=== PATIENT | male | born 1980 | race Caucasian/White ===

== ENCOUNTER 2024-12-19 17:33 | Emergency (ER) | payer MEDICAID ==
[~2024-12-19] VITALS: Ht 162.6 cm; Wt 80.0 kg
[2024-12-19 17:59] VITALS: O2SAT 100
[2024-12-19 18:51] LABS: BASOPHILS % 0.3 % (0.0-2.0); EOSINOPHILS % 0.9 % (0.0-5.0); HEMATOCRIT. 41.4 % (42.0-52.0); HEMOGLOBIN. 13.8 g/dL (14.0-18.0); LYMPHOCYTES % 13.8 % (20.0-50.0); MEAN CORPUSCULAR HGB CONC 33.4 g/dL (31.0-37.0); MEAN CORPUSCULAR VOLUME 89.8 fL (80.0-94.0); MEAN PLATELET VOLUME 8.5 fl (7.4-10.4); MONOCYTES % 9.5 % (2.0-8.0); NEUTROPHILS % 75.5 % (40.0-76.0); PLATELET 287 x1000/uL (130-400); RED BLOOD CELL COUNT 4.61 mill/uL (4.7-6.1); RED CELL DISTRIBUTION WIDTH 13.8 % (11.6-14.6); WHITE BLOOD COUNT 12.6 x1000/uL (4.5-11.0)
[2024-12-19 19:07] LABS: CHLORIDE 99 mEq/L (98-107); POTASSIUM 3.5 mEq/L (3.5-5.1); SODIUM 139 mEq/L (136-145)
[2024-12-19 19:08] LABS: CARBON DIOXIDE 32 mEq/L (21-32)
[2024-12-19 19:09] LABS: CALCIUM 9.5 mg/dL (8.7-10.4)
[2024-12-19 19:13] LABS: CREATININE 0.9 mg/dL (0.6-1.3); GLUCOSE 99 mg/dL (70-105)
[2024-12-19 19:14] LABS: UREA NITROGEN BLOOD 12 mg/dL (9-23)
[2024-12-19] MEDS: DICYCLOMINE HCL 10MG CAPSULE PO ONE (20:00)
[2024-12-19] MEDS: MAGNESIUM/ALUMINUM HYDROXIDE/SIMETHICONE 30ML UDC PO ONE (20:00)
[2024-12-19 21:44] LABS: CLARITY URINE CLEAR (CLEAR); COLOR URINE YELLOW (YELLOW); GLUCOSE URINE NEGATIVE (NEGATIVE); KETONES URINE NEGATIVE (NEGATIVE); LEUKOCYTE ESTERASE URINE NEGATIVE (NEGATIVE); NITRITE URINE NEGATIVE (NEGATIVE); OCCULT BLOOD URINE NEGATIVE (NEGATIVE); PROTEIN URINE NEGATIVE (NEGATIVE); SPECIFIC GRAVITY URINE 1.009 (1.005-1.030); UROBILINOGEN URINE 0.2 E.U./dL (0.2-1.0)
[2024-12-19] MEDS ORDERED: OMEP40CA20 MT (21:46)
[2024-12-19 22:02] VITALS: BP 131/89; PULSE 65; RESP 17; TEMP 36.8; O2SAT 100
== END 2024-12-19 22:21 | disposition home or self-care (01) ==
LOC: ER 17:33
DX: K57.32 Diverticulitis of large intestine without perforation or abscess without bleeding (principal); Z79.899 Other long term (current) drug therapy; Z88.0 Allergy status to penicillin
CPT/HCPCS: 36415; 74018; 74176; 80048; 81003; 85025; 99284

== ENCOUNTER 2025-05-08 11:57 | Inpatient (IN) | payer MEDICAID ==
[~2025-05-08] VITALS: Ht 167.6 cm; Wt 81.8 kg
[~2025-05-08 11:57] MED LIST: OMEP40CA20 MT
[2025-05-08 12:20] VITALS: O2SAT 99
[2025-05-08 13:35] LABS: HEMATOCRIT. 46.2 % (42.0-52.0); HEMOGLOBIN. 15.7 g/dL (14.0-18.0); MEAN PLATELET VOLUME 8.5 fl (7.4-10.4); PLATELET 302 x1000/uL (130-400); RED BLOOD CELL COUNT 5.13 mill/uL (4.7-6.1); RED CELL DISTRIBUTION WIDTH 14.1 % (11.6-14.6)
[2025-05-08 13:50] LABS: CREATININE 1.1 mg/dL (0.6-1.3)
[2025-05-08] MEDS: MAGNESIUM/ALUMINUM HYDROXIDE/SIMETHICONE 30ML UDC PO ONE (13:50)
[2025-05-08] MEDS: ONDANSETRON 4MG ODT PO ONE (13:50)
[2025-05-08] MEDS: FAMOTIDINE 20MG TABLET PO SCH (13:50)
[2025-05-08 13:51] LABS: TROPONIN I HIGH SENSITIVITY 4 ng/L (3.0-53); UREA NITROGEN BLOOD 9 mg/dL (9-23)
[2025-05-08 13:52] LABS: ASPARTATE AMINOTRANSFERASE 388 IU/L (<34); BILIRUBIN DIRECT 7.7 mg/dL (<=3.0)
[2025-05-08 13:53] LABS: BILIRUBIN TOTAL 10.9 mg/dL (0.1-1.0); PROTEIN TOTAL 9.0 g/dL (6.0-8.3)
[2025-05-08 14:17] LABS: CLARITY URINE CLEAR (CLEAR); COLOR URINE ORANGE (YELLOW); GLUCOSE URINE NEGATIVE (NEGATIVE); KETONES URINE NEGATIVE (NEGATIVE); LEUKOCYTE ESTERASE URINE 2+ (NEGATIVE); NITRITE URINE POSITIVE (NEGATIVE); OCCULT BLOOD URINE NEGATIVE (NEGATIVE); PH URINE 5.5 (4.5-8.0); PROTEIN URINE 2+ (NEGATIVE); SPECIFIC GRAVITY URINE 1.032 (1.005-1.030); UROBILINOGEN URINE 0.2 E.U./dL (0.2-1.0)
[2025-05-08 14:43] LABS: MUCUS URINE 1+ /lpf (NONE/TRACE)
[2025-05-08 14:44] LABS: BACTERIA URINE 1+
[2025-05-08 14:45] LABS: RBC URINE 0-2 /hpf (0-2); SQUAMOUS EPITHELIAL CELL URINE FEW /lpf (RARE/1+); WBC URINE 0-2 /hpf (0-2)
[2025-05-08] MEDS: SODIUM CHLORIDE 0.9% 1,000 ML IV ONE (14:51)
[2025-05-08] MEDS: SODIUM CHLORIDE 0.9% (SEPSIS BOLUS) IV ONE (14:54)
[2025-05-08 15:07] LABS: LYMPHOCYTES % MANUAL 2.0 % (20.0-50.0); MONOCYTES % MANUAL 6.0 % (2.0-8.0); NEUTROPHILS % MANUAL 92.0 % (45.0-75.0); PLATELET ESTIMATE NORMAL
[2025-05-08] MEDS: GENTAMICIN 120MG PREMIX 100 ML IV SCH (15:12)
[2025-05-08 16:20] VITALS: BP 147/106; PULSE 71; RESP 21; TEMP 36.5292
[2025-05-08] MEDS ORDERED: ONDANSETRON HCL 4MG/2ML INJ IV PRN (17:00)
[2025-05-08] MEDS: SODIUM CHLORIDE 0.9% 1,000 ML IV SCH (17:06)
[2025-05-08] MEDS: MORPHINE SULFATE 4 MG/ML INJ (FOR IV/IM USE) IV PRN (17:06)
[2025-05-08] MEDS ORDERED: NALOXONE HCL 0.4MG/ML VIAL IV PRN (17:15)
[2025-05-08 17:18] VITALS: BP 134/93; PULSE 81; RESP 18; O2SAT 98
[2025-05-08] MEDS: CEFTRIAXONE 1GM/50ML 50 ML IV ONE (18:53)
[2025-05-08] MEDS ORDERED: HYDRALAZINE 20MG/ML VIAL IV PRN (19:15)
[2025-05-08 20:00] VITALS: BP 133/97; PULSE 70; RESP 16; TEMP 37.3; O2SAT 99
[2025-05-08] MEDS ORDERED: CLONIDINE HCL 0.1MG/24HR PATCH TD SCH (21:00)
[2025-05-08] MEDS ORDERED: ACETAMINOPHEN 325MG TABLET PO PRN (22:30)
[2025-05-08] MEDS ORDERED: DIPHENHYDRAMINE 50MG/ML VIAL IV PRN (22:30)
[2025-05-09] VITALS (8 sets, daily range): BP systolic 101–139; BP diastolic 70–98; PULSE 64–80; RESP 13–18; TEMP 37–37.6; O2SAT 96–98
[2025-05-09 05:26] LABS: UREA NITROGEN BLOOD 9 mg/dL (9-23)
[2025-05-09 05:27] LABS: CREATININE 0.9 mg/dL (0.6-1.3)
[2025-05-09 05:29] LABS: ASPARTATE AMINOTRANSFERASE 185 IU/L (<34)
[2025-05-09 05:30] LABS: BILIRUBIN DIRECT 6.3 mg/dL (<=3.0); PHOSPHORUS 2.5 mg/dL (2.5-4.9); PROTEIN TOTAL 6.9 g/dL (6.0-8.3)
[2025-05-09 05:34] LABS: BILIRUBIN TOTAL 8.5 mg/dL (0.1-1.0)
[2025-05-09 06:29] LABS: BASOPHILS % 0.1 % (0.0-2.0); EOSINOPHILS % 0.4 % (0.0-5.0); HEMATOCRIT. 40.3 % (42.0-52.0); HEMOGLOBIN. 13.5 g/dL (14.0-18.0); LYMPHOCYTES % 9.3 % (20.0-50.0); MEAN PLATELET VOLUME 9.1 fl (7.4-10.4); MONOCYTES % 8.2 % (2.0-8.0); NEUTROPHILS % 82.0 % (40.0-76.0); PLATELET 234 x1000/uL (130-400); RED BLOOD CELL COUNT 4.42 mill/uL (4.7-6.1); RED CELL DISTRIBUTION WIDTH 14.5 % (11.6-14.6)
[2025-05-09] MEDS: PANTOPRAZOLE SODIUM 40 MG/VIAL IV SCH (08:33)
[2025-05-09 09:34] LABS: HEPATITIS A AB IGM NEGATIVE (Negative)
[2025-05-09 09:35] LABS: HEPATITIS B CORE AB IGM NEGATIVE (Negative); HEPATITIS C AB NON REACTIVE (Neg) (Negative)
[2025-05-09] MEDS: ONDANSETRON HCL 4MG/2ML INJ IV PRN (13:30)
[2025-05-09] MEDS: LACTATED RINGERS 1,000 ML IV SCH (21:22)
[2025-05-10] VITALS: BP 126/84; PULSE 77; RESP 18; TEMP 36.9; O2SAT 97
[2025-05-10 04:00] VITALS: BP 110/72; PULSE 72; RESP 14; TEMP 36.8; O2SAT 96
[2025-05-10 06:58] LABS: BASOPHILS % 0.3 % (0.0-2.0); EOSINOPHILS % 3.2 % (0.0-5.0); HEMATOCRIT. 37.1 % (42.0-52.0); HEMOGLOBIN. 12.7 g/dL (14.0-18.0); LYMPHOCYTES % 10.7 % (20.0-50.0); MEAN PLATELET VOLUME 9.2 fl (7.4-10.4); MONOCYTES % 9.5 % (2.0-8.0); NEUTROPHILS % 76.3 % (40.0-76.0); PLATELET 212 x1000/uL (130-400); RED BLOOD CELL COUNT 4.11 mill/uL (4.7-6.1); RED CELL DISTRIBUTION WIDTH 14.5 % (11.6-14.6)
[2025-05-10 07:10] LABS: BILIRUBIN TOTAL 5.4 mg/dL (0.1-1.0); CREATININE 0.8 mg/dL (0.6-1.3); PROTEIN TOTAL 6.6 g/dL (6.0-8.3); TRIGLYCERIDE 158 mg/dL (0-150); UREA NITROGEN BLOOD 5 mg/dL (9-23)
[2025-05-10 07:12] LABS: ASPARTATE AMINOTRANSFERASE 105 IU/L (<34); BILIRUBIN DIRECT 3.7 mg/dL (<=3.0)
[2025-05-10 08:00] VITALS: BP 122/82; PULSE 73; RESP 16; TEMP 36.9; O2SAT 96
[2025-05-10 12:00] VITALS: BP 125/89; PULSE 67; RESP 15; TEMP 37.1; O2SAT 97
[2025-05-10] MEDS: BISACODYL 5MG TABLET PO PRN (14:01)
[2025-05-10] MEDS: POTASSIUM CHLORIDE 20MEQ TABLET SR PO NR (14:03)
[2025-05-10 16:00] VITALS: BP 125/87; PULSE 75; RESP 17; TEMP 37.1; O2SAT 96
[2025-05-10 20:00] VITALS: BP 120/73; PULSE 68; RESP 20; TEMP 37.2; O2SAT 98
[2025-05-11] VITALS (7 sets, daily range): BP systolic 105–140; BP diastolic 64–95; PULSE 56–88; RESP 18–26; TEMP 36.6–37.7; O2SAT 96–99
[2025-05-11] MEDS: ACETAMINOPHEN 325MG TABLET PO PRN (01:33)
[2025-05-11] MEDS: KCL 20MEQ/100ML PREMIX 100 ML IV SCH (04:06)
[2025-05-11 07:14] LABS: BASOPHILS % 0.3 % (0.0-2.0); EOSINOPHILS % 5.4 % (0.0-5.0); HEMATOCRIT. 36.8 % (42.0-52.0); HEMOGLOBIN. 12.5 g/dL (14.0-18.0); LYMPHOCYTES % 18.1 % (20.0-50.0); MEAN PLATELET VOLUME 9.2 fl (7.4-10.4); MONOCYTES % 8.5 % (2.0-8.0); NEUTROPHILS % 67.7 % (40.0-76.0); PLATELET 227 x1000/uL (130-400); RED BLOOD CELL COUNT 4.07 mill/uL (4.7-6.1); RED CELL DISTRIBUTION WIDTH 14.6 % (11.6-14.6)
[2025-05-11 07:23] LABS: CREATININE 0.7 mg/dL (0.6-1.3)
[2025-05-11 07:24] LABS: UREA NITROGEN BLOOD 5 mg/dL (9-23)
[2025-05-11 07:25] LABS: ASPARTATE AMINOTRANSFERASE 72 IU/L (<34)
[2025-05-11 07:26] LABS: BILIRUBIN TOTAL 3.6 mg/dL (0.1-1.0); PROTEIN TOTAL 6.4 g/dL (6.0-8.3)
[2025-05-11] MEDS: MULTIVITAMINS,THER W-MINERALS TABLET PO SCH (16:55)
[2025-05-11] MEDS: FOLIC ACID 1MG TABLET PO SCH (16:55)
[2025-05-11] MEDS: THIAMINE HCL 100MG TABLET PO SCH (16:55)
[2025-05-11] MEDS ORDERED: CHLORDIAZEPOXIDE 25MG CAPSULE PO SCH (22:00)
== END 2025-05-11 21:10 | disposition home or self-care (01) | DRG 282 ==
LOC: ER 11:57 → 3WST 15:14 → EDBEDREQ 15:17 → ENRESERV 15:19
PROVIDERS: ADMIT Internal Medicine; ATTEND Internal Medicine
DX: K85.90 Acute pancreatitis without necrosis or infection, unspecified (principal); R17 Unspecified jaundice; F14.90 Cocaine use, unspecified, uncomplicated; K80.20 Calculus of gallbladder without cholecystitis without obstruction; R74.01 Elevation of levels of liver transaminase levels; N39.0 Urinary tract infection, site not specified; Z87.891 Personal history of nicotine dependence; Z88.0 Allergy status to penicillin
CPT/HCPCS: 36415; 71045; 74176; 76705; 80048; 80053; 80076; 80320; 81003; 82150; 82977; 83605; 83735; 84100; 84478; 84484; 85025; 86705; 86709; 87340; 93005; 96365; 99291; J0696; J1580; J2270; J2405; J2470; J3480; J7030; J7120; Q0162; G0480